=== PATIENT | male | born 1940 | race Hispanic/Latino ===

== ENCOUNTER 2024-01-22 12:19 | Emergency (ER) | payer OTHER ==
[~2024-01-22] VITALS: Ht 167.6 cm; Wt 69.5 kg
[2024-01-22] MEDS ORDERED: HYDROCODON-ACE1 EAC9 (13:35)
[2024-01-22] MEDS ORDERED: CALTRATE 600 W1 EACH (13:35)
[2024-01-22] MEDS ORDERED: CLARITIN10 M4 (13:35)
[2024-01-22] MEDS ORDERED: AMLODIPINE BESY10 MG PO (13:35)
[2024-01-22] MEDS ORDERED: FLONASE ALLERG9.9 ML INH (13:35)
[2024-01-22] MEDS ORDERED: VITAMIN B-121000 MCG PO (13:35)
[2024-01-22] MEDS ORDERED: ACULAR5 ML OU (13:35)
[2024-01-22] MEDS ORDERED: VALACYCLOVIR500 MG PO (13:35)
[2024-01-22] MEDS ORDERED: MAGOX 400400 MG PO (13:35)
[2024-01-22] MEDS ORDERED: SPRYCEL50 MG (13:35)
[2024-01-22] MEDS ORDERED: IOPAMIDOL 370 MG/ML 100 ML INFUS..BTL INJ ONE (14:04)
[2024-01-22] MEDS: SODIUM CHLORIDE 0.9% 1000ML 1,000 ML IV ONE (14:47)
[2024-01-22 17:29] VITALS: PULSE 66; RESP 16; TEMP 98.1; O2SAT 98
== END 2024-01-22 17:34 | disposition home or self-care (01) ==
LOC: FSED 12:29
DX: R51.9 Headache, unspecified (principal); I10 Essential (primary) hypertension; E78.5 Hyperlipidemia, unspecified; M54.9 Dorsalgia, unspecified; G89.29 Other chronic pain; C95.91 Leukemia, unspecified, in remission
CPT/HCPCS: 70487; 80053; 85025; 99284; J7030; Q9967